=== PATIENT | female | born 2000 | race Caucasian/White ===

== ENCOUNTER 2022-12-23 16:03 | Emergency (ER) | payer MEDICAID ==
[~2022-12-23] VITALS: Ht 149.9 cm; Wt 69.1 kg
[2022-12-23 16:06] VITALS: O2SAT 99
[2022-12-23] MEDS ORDERED: ACETAMINOPHEN 325MG TABLET PO ONE (19:30)
[2022-12-23] MEDS ORDERED: KETOROLAC 30MG/ML VIAL IM ONE (19:30)
[2022-12-23 20:38] VITALS: BP 132/85; PULSE 117; RESP 16; TEMP 98.1
== END 2022-12-23 22:00 | disposition home or self-care (01) ==
LOC: ER 16:03
DX: M25.571 Pain in right ankle and joints of right foot (principal); Z98.890 Other specified postprocedural states; W10.9XXA Fall (on) (from) unspecified stairs and steps, initial encounter; Y93.89 Activity, other specified; Y92.89 Other specified places as the place of occurrence of the external cause; Y99.8 Other external cause status
CPT/HCPCS: 73590; 73610; 73620; 96372; 99284; J1885; Z7610

== ENCOUNTER 2024-09-23 12:24 | Emergency (ER) | payer MEDICAID, OTHER ==
[~2024-09-23] VITALS: Ht 149.9 cm; Wt 90.0 kg
[2024-09-23 12:32] VITALS: BP 117/87; PULSE 113; RESP 16; TEMP 36.8; O2SAT 99
[2024-09-23 12:39] VITALS: O2SAT 100
[2024-09-23 13:27] LABS: BASOPHILS % 0.5 % (0.0-2.0); EOSINOPHILS % 1.4 % (0.0-5.0); HEMATOCRIT. 42.3 % (36.0-48.0); HEMOGLOBIN. 14.3 g/dL (12.0-16.0); LYMPHOCYTES % 29.2 % (20.0-50.0); MEAN CORPUSCULAR HEMOGLOBIN 29.9 pg (28.0-32.0); MEAN CORPUSCULAR HGB CONC 33.8 g/dL (31.0-37.0); MEAN CORPUSCULAR VOLUME 88.4 fL (81.0-99.0); MEAN PLATELET VOLUME 8.9 fl (7.4-10.4); MONOCYTES % 6.7 % (2.0-8.0); NEUTROPHILS % 62.2 % (40.0-76.0); PLATELET 399 x1000/uL (130-400); RED BLOOD CELL COUNT 4.79 mill/uL (4.2-5.4)
[2024-09-23 13:46] LABS: CHLORIDE 102 mEq/L (98-107); POTASSIUM 3.8 mEq/L (3.5-5.1); SODIUM 139 mEq/L (136-145)
[2024-09-23 13:47] LABS: CALCIUM 9.8 mg/dL (8.7-10.4); CARBON DIOXIDE 24 mEq/L (21-32)
[2024-09-23 13:52] LABS: CREATININE 0.7 mg/dL (0.6-1.0); GLUCOSE 79 mg/dL (70-105); UREA NITROGEN BLOOD 9 mg/dL (9-23)
[2024-09-23 14:04] LABS: B-HCG QUANTITATIVE 21903 mIU/mL (<6)
== END 2024-09-23 13:48 | disposition left against medical advice (07) ==
LOC: ER 12:24
DX: O26.891 Other specified pregnancy related conditions, first trimester (principal); Z98.890 Other specified postprocedural states; Z53.21 Procedure and treatment not carried out due to patient leaving prior to being seen by health care provider; Z3A.01 Less than 8 weeks gestation of pregnancy
CPT/HCPCS: 80048; 84702; 85025; 86850; 86900; 86901; 36415; Z7610